=== PATIENT | female | born 1950 | race Caucasian/White ===

== ENCOUNTER 2017-09-03 10:38 | Outpatient (CLI) | payer MEDICARE, MEDICAID ==
[~2017-09-03] VITALS: Ht 165.1 cm; Wt 86.2 kg
[2017-09-03 11:00] LABS: TOTAL HEMOGLOBIN 15.1 G/dl (12.0-16.0)
[2017-09-03] MEDS ORDERED: albuterol 2.5 MG/3 ML nebule NEB ONE (11:10)
== END 2017-09-03 23:59 | disposition home or self-care (01) ==
LOC: RT 10:38
PROVIDERS: ATTEND Registered Nurse General Practice
DX: R06.02 Shortness of breath (principal); R07.89 Other chest pain; R06.09 Other forms of dyspnea; F17.200 Nicotine dependence, unspecified, uncomplicated
CPT/HCPCS: 85018; 94060; 94640; 94727; 94729; 94760

== ENCOUNTER 2018-10-22 07:48 | Outpatient (CLI) | payer MEDICARE, MEDICAID ==
[~2018-10-22] VITALS: Ht 165.1 cm; Wt 87.0 kg
[2018-10-22] MEDS ORDERED: aminophylline inj. 10 ML IV ONE (08:22)
[2018-10-22] MEDS ORDERED: regadenoson 0.4mg/5ml syringe IV ONE ×2 (08:22→08:45)
[2018-10-22] MEDS ORDERED: nitroGLYCERIN 0.4mg SUBLingual tab SL PRN (08:45)
[2018-10-22] MEDS ORDERED: aminophylline 250mg/10ml inj. IV PRN (08:45)
[2018-10-22] MEDS ORDERED: normal saline 500ml IV soln 500 ML IV ONE (08:45)
[2018-10-22 09:27] VITALS: BP 137/73
[2018-10-22 09:45] VITALS: BP 141/72
[2018-10-22 09:48] VITALS: BP_SYST 148; BP_SYST 149; BP_DIAS 68; BP_DIAS 72
[2018-10-22 09:49] VITALS: BP 147/67
[2018-10-22 09:50] VITALS: BP 143/65
[2018-10-22] MEDS ORDERED: EZET10TA14 PO (11:31)
[2018-10-22] MEDS ORDERED: PER10325T PO (11:31)
[2018-10-22] MEDS ORDERED: CALC1TAB PO (11:31)
[2018-10-22] MEDS ORDERED: ASPI-611 PO (11:31)
[2018-10-22] MEDS ORDERED: FENO160T13 PO (11:31)
[2018-10-22] MEDS ORDERED: ICOS1CAP PO (11:31)
[2018-10-22] MEDS ORDERED: LISI-600 PO (11:31)
[2018-10-22] MEDS ORDERED: FERR325T32 PO (11:31)
[2018-10-22] MEDS ORDERED: INSU100I29 SQ (11:31)
[2018-10-22] MEDS ORDERED: UBID100C16 PO (11:31)
[2018-10-22] MEDS ORDERED: TAMO10TA4 PO (11:31)
[2018-10-22] MEDS ORDERED: PIOG30TA71 PO (11:31)
[2018-10-22] MEDS ORDERED: CETI10TA15 PO (11:31)
[2018-10-22] MEDS ORDERED: VITA400C67 PO (11:31)
== END 2018-10-22 23:59 | disposition home or self-care (01) ==
LOC: RAD 07:48
PROVIDERS: ATTEND Internal Medicine Cardiovascular Disease
DX: Z01.810 Encounter for preprocedural cardiovascular examination (principal); I10 Essential (primary) hypertension; J44.9 Chronic obstructive pulmonary disease, unspecified; Z87.891 Personal history of nicotine dependence
CPT/HCPCS: 78452; 93017; A9500; J0280; J7030